=== PATIENT | male | born 1945 | race Caucasian/White ===

== ENCOUNTER 2017-11-21 09:48 | Emergency (ER) | payer MEDICARE, BC ==
[~2017-11-21] VITALS: Ht 185.4 cm; Wt 114.8 kg
[2017-11-21 09:52] VITALS: BP 145/79; PULSE 93; RESP 16; TEMP 98.2; O2SAT 93
[2017-11-21] MEDS ORDERED: OMEP20TA93 PO (10:02)
[2017-11-21] MEDS ORDERED: LOVA40TA PO (10:02)
[2017-11-21] MEDS ORDERED: MELO15TA20 PO (10:02)
[2017-11-21] MEDS ORDERED: LIDOCAINE HCL 1% PF 30 ML VIAL ONE (10:22)
--- NOTE | 2017-11-21 10:29 | PD ---
HPI Chief Complaint: Bite or Sting Time Seen by Provider: 10:06 Travel History International Travel<30 days: No Contact w/Intl Traveler<30days: No Traveled to known affect area: No History of Present Illness HPI 72yo M with no significant PMH presents to the ED with c/o possible bug bite in right upper back. Said it has been there for 4 to 5 days and it drained pus yesterday. Said it looks better to him but his made him come to the ED. Denies any fever, chest pain, sob, n/v, abdominal pain, focal weakness or numbness. PFSH Past Medical History High Cholesterol: Yes Diabetes: No Diminished Hearing: No GERD: Yes Tetanus Vaccination: Unknown Past Surgical History Abdominal Aneurysm Repair: Yes (4 YRS AGO) Social History Alcohol Use: Yes (SOC) Tobacco Use: No Substance Use: No Allergies-Medications (Allergen,Severity, Reaction): Coded Allergies: No Known Allergies (Unverified , 11/21/17) Reported Meds & Prescriptions Reported Meds & Active Scripts Active Reported Omeprazole 20 Mg Tab 20 Mg PO DAILY Meloxicam 15 Mg Tab 15 Mg PO DAILY Lovastatin 40 Mg Tab 40 Mg PO DAILY Review of Systems Except as stated in HPI: all other systems reviewed are Neg Physical Exam Narrative GENERAL: 72yo M not in distress. SKIN: +3cm by 3cm erythematous abscess right scapula. There is a very small amount of fluctuance. HEAD: Atraumatic. Normocephalic. CARDIOVASCULAR: Regular rate and rhythm. No murmur appreciated. RESPIRATORY: No accessory muscle use. Clear to auscultation. Breath sounds equal bilaterally. GASTROINTESTINAL: Abdomen soft, non-tender, nondistended. MUSCULOSKELETAL: No obvious deformities. No clubbing. No cyanosis. No edema. NEUROLOGICAL: Awake and alert. No obvious cranial nerve deficits. Motor grossly within normal limits. Normal speech. PSYCHIATRIC: Appropriate mood and affect; insight and judgment normal. Data Data Last Documented VS Vital Signs Date Time Temp Pulse Resp B/P (MAP) Pulse Ox O2 Delivery O2 Flow Rate FiO2 11/21/17 09:52 98.2 93 16 145/79 (101) 93 Room Air Orders Orders Lidocaine 1% Inj (Xylocaine 1% Inj) (11/21/17 10:30) Lidocaine Pf 1% Inj (Xylocaine-Mpf 1% In (11/21/17 10:22) MDM Medical Decision Making Medical Screen Exam Complete: Yes Emergency Medical Condition: Yes Differential Diagnosis Abscess Narrative Course 72yo M with small abscess in right scapula. My PA did I&D. No packing needed. Will cover with bactrim. Return precautions given. Diagnosis Primary Impression: Abscess Patient Instructions: General Instructions Departure Forms: Tests/Procedures Additional Instructions: Please follow up with your primary care physician in 2-3 days. Return to the ED if symptoms worsen. Med/Other Pt SpecificInfo: Prescription(s) given Scripts Sulfamethoxazole-Trimethoprim (Bactrim DS) 800-160 Mg Tab 1 TAB PO BID for Infection, #14 TAB 0 Refills Prov: Lydia Berman DO 11/21/17 Disposition: 01 DISCHARGE HOME Condition: Stable Lydia Berman DO Nov 21, 2017 10:29
[2017-11-21] MEDS ORDERED: LIDOCAINE HCL 1% 30 ML VIAL INFIL ONE (10:30)
--- NOTE | 2017-11-21 11:17 | PD ---
Physical Exam Narrative Attending physician Dr. Berman to perform incision and drainage of patient's abscess Data Data Last Documented VS Vital Signs Date Time Temp Pulse Resp B/P (MAP) Pulse Ox O2 Delivery O2 Flow Rate FiO2 11/21/17 09:52 98.2 93 16 145/79 (101) 93 Room Air Orders Orders Lidocaine 1% Inj (Xylocaine 1% Inj) (11/21/17 10:30) Lidocaine Pf 1% Inj (Xylocaine-Mpf 1% In (11/21/17 10:22) MDM Supervised Visit with NANCY: Yes Procedures Procedure Narrative INCISION AND DRAINAGE OF ABSCESS: The area was prepped and was sterilely draped. A subcutaneous wheal of 1 % lidocaine was used to anesthetize the area properly. A number 11 scalpel was used to make a 0.5 -cm incision across the area of the abscess. The abscess was drained, complex loculations were broken down, and irrigated with normal saline. . Sterile dressing applied. She tolerated procedure well Patient Instructions: General Instructions Departure Forms: Tests/Procedures Moon Steele Nov 21, 2017 11:17
[2017-11-21] MEDS ORDERED: BACT800T5 PO (11:19)
== END 2017-11-21 11:24 | disposition home or self-care (01) ==
LOC: PHED 09:48
DX: L02.413 Cutaneous abscess of right upper limb (principal); E78.00 Pure hypercholesterolemia, unspecified; K21.9 Gastro-esophageal reflux disease without esophagitis; Z79.899 Other long term (current) drug therapy
CPT/HCPCS: 10060